=== PATIENT | male | born 1990 | race Caucasian/White ===

== ENCOUNTER 2016-09-15 18:57 | Emergency (ER) | payer BC, OTHER ==
[~2016-09-15] VITALS: Ht 185.4 cm; Wt 93.0 kg
[~2016-09-15 18:57] MED LIST: OMEP20TA39 PO; RANI150T PO; ZOFR4TAB3 SL
[2016-09-15 19:05] VITALS: BP 132/91; PULSE 95; RESP 14; TEMP 98.4; O2SAT 97
--- NOTE | 2016-09-15 19:10 | PD ---
HPI . sore throat for 2 days Chief Complaint: ENT Complaint Time Seen by Provider: 19:10 Travel History International Travel<30 days: No Contact w/Intl Traveler<30days: No Traveled to known affect area: No History of Present Illness HPI 26-year-old male witha past medical history here with complaints of sore throat for 2 days. Patient states that his significant other has been exposed to strep and he was concerned. He reports sore throat and difficulty eating due to this pain. He denies any fever or chills or other cold symptoms. He denies any trouble breathing. He is accompanied by his mother. FOR[facility], [facility] Social History Alcohol Use: No Tobacco Use: No Substance Use: No Allergies-Medications (Allergen,Severity, Reaction): Coded Allergies: Amoxicillin (Verified Allergy, Intermediate, Rash, 09/15/16) Reported Meds & Prescriptions Reported Meds & Active Scripts Active Zithromax Z-Christian (Azithromycin) 250 Mg Dspk 250 Mg PO DIRECTED 500 MG (2 tabs) day 1, then 1 tab days 2-5. Review of Systems General / Constitutional: No: Fever Eyes: No: Visual changes HENT: Positive: Sore Throat, No: Headaches Cardiovascular: No: Chest Pain or Discomfort Respiratory: No: Shortness of Breath Gastrointestinal: No: Abdominal Pain Genitourinary: No: Dysuria Musculoskeletal: No: Pain Skin: No Rash Neurologic: No: Weakness Psychiatric: No: Depression Endocrine: No: Polydipsia Hematologic/Lymphatic: No: Easy Bruising Physical Exam Narrative GENERAL: AAO x 3, no acute distress, Well-nourished, well-developed patient. SKIN: Warm and dry. No visible rashes or bruising. HEAD: Normocephalic and atraumatic. EYES: No scleral icterus. No injection or drainage. EOM intact, PERRLA ENT: No nasal drainage noted. Mucous membranes pink. Airway patent. Mild posterior pharynx erythema without exudates. No drooling or stridor. NECK: Supple, trachea midline. No JVD. CARDIOVASCULAR: Regular rate and rhythm without murmurs, gallops, or rubs. RESPIRATORY: Breath sounds equal bilaterally. No accessory muscle use. No rhonchi or rales. GASTROINTESTINAL: Abdomen soft, non-tender, nondistended. EXTREMITIES: No cyanosis or edema. BACK: Nontender without obvious deformity. No CVA tenderness. PSYCH: AAO x 3, normal affect. Data Data Last Documented VS Vital Signs Date Time Temp Pulse Resp B/P Pulse Ox O2 Delivery O2 Flow Rate FiO2 09/15/16 19:05 98.4 95 14 132/91 97 MDM Medical Decision Making Medical Screen Exam Complete: Yes Emergency Medical Condition: Yes Medical Record Reviewed: Yes Differential Diagnosis Strep pharyngitis, virus pharyngitis, sinusitis Narrative Course 26-year-old male witha past medical history here with complaints of sore throat for 2 days. Patient states that his significant other has been exposed to strep and he was concerned. He reports sore throat and difficulty eating due to this pain. He denies any fever or chills or other cold symptoms. He denies any trouble breathing. He is accompanied by his mother. Patient seen and examined. There is mild erythema of his posterior pharynx on exam. There are no exudates. Due to his exposure and symptomatology go ahead and treat for acute pharyngitis. I discussed with him and his mother and they were in agreement.. Patient verbalized understanding of instructions, questions were answered, and thanked me for their care. I advised them if their condition worsens, please return to the nearest emergency room for further care. Diagnosis Primary Impression: Acute pharyngitis Qualified Code: J02.9 - Acute pharyngitis, unspecified etiology Patient Instructions: General Instructions Additional Instructions: Please return to emergency department if your symptoms return or worsen. Follow up with your primary care provider. Take medications as prescribed. If you develop a fever, take Tylenol or Motrin as needed. You can also use Tylenol and Motrin for pain. If you develop any difficulty breathing or inability to eat anything, return to the nearest emergency department. Med/Other Pt SpecificInfo: Prescription(s) given Scripts Azithromycin (Zithromax Z-Christian)250 Mg [id number] Mg PO DIRECTED #1 DSPK Ref 0 500 MG (2 tabs) day 1, then 1 tab days 2-5. Prov:Terrell Myers MD 09/15/16 Disposition: 01 DISCHARGE HOME Condition: Stable Farnaz Edouard Sep 15, 2016 19:10
[2016-09-15] MEDS ORDERED: ZITHTAB PO (19:20)
== END 2016-09-15 19:34 | disposition home or self-care (01) ==
LOC: PHEFT 18:57
DX: J02.9 Acute pharyngitis, unspecified (principal)
CPT/HCPCS: 99282